=== PATIENT | female | born 1990 | race Caucasian/White ===

== ENCOUNTER 2017-10-10 01:33 | Emergency (ER) | payer OTHER ==
[~2017-10-10] VITALS: Ht 170.2 cm; Wt 70.0 kg
--- NOTE | 2017-10-10 02:43 | ED GI/GU/ABDOMINAL COMPLAINT ---
History of Present Illness General Chief Complaint: Abdominal Pain/Flank Pain Stated Complaint: "I FEEL TO MUCH PAIN IN MY STOMACH" Source: patient Exam Limitations: no limitations Vital Signs & Intake/Output Vital Signs & Intake/Output Vital Signs Date Time Temp Pulse Resp B/P B/P Pulse O2 O2 Flow FiO2 Mean Ox Delivery Rate 10/10 0335 97.9 80 16 104/51 99 Room Air Allergies Coded Allergies: No Known Allergies (10/10/17) Reconcile Medications Omeprazole Magnesium (Prilosec Otc) 20 MG TABLET.DR 1 TAB PO DAILY stomach pain Ondansetron (Zofran Odt) 4 MG TAB.RAPDIS 1 TAB SL TID PRN nausea, vomiting Triage Note: 27YO FEMALE TO TRIAGE W/CO ABD PAIN THAT AWOKE HER AND VOMITING X 1 Triage Nurses Notes Reviewed? yes ? n Is pt currently ? No Onset: Gradual Duration: hour(s):, better Timing: recent history Quality/Severity: burning Location: epigastric Radiation: no radiation Activities at Onset: none Modifying Factors: Worsens With: palpation. Associated Symptoms: abdominal pain HPI: 27 yo woman in prior good health awoke this am with gagging and mid epigastric burning type pain x 1-2 hours. She notes that presently she is feeling better. She has no fever, chills, chest pain, nausea, vomiting, diarrhea. She is otherwise well. Past History Travel History Traveled to [place] past 21 day No Medical History Any Pertinent Medical History? see below for history Neurological: NONE EENT: NONE Cardiovascular: NONE Respiratory: NONE Gastrointestinal: NONE Hepatic: NONE Renal: NONE Musculoskeletal: NONE Psychiatric: NONE Endocrine: NONE Blood Disorders: NONE Cancer(s): NONE DIRECTOR [employer]IENT SERVICES/Reproductive: NONE Surgical History Surgical History: none Psychosocial History What is your primary language [facility] Tobacco Use: Never used Family History Hx Contributory? No Review of Systems Review of Systems Constitutional: Reports: no symptoms. EENTM: Reports: no symptoms. Respiratory: Reports: no symptoms. Cardiovascular: Reports: no symptoms. GI: Reports: no symptoms. Genitourinary: Reports: no symptoms. Musculoskeletal: Reports: no symptoms. Skin: Reports: no symptoms. Neurological/Psychological: Reports: no symptoms. Hematologic/Endocrine: Reports: no symptoms. Immunologic/Allergic: Reports: no symptoms. All Other Systems: Reviewed and Negative Physical Exam Physical Exam General Appearance: well developed/nourished, no apparent distress Head: atraumatic, normal appearance Eyes: Bilateral: normal appearance. Ears, Nose, Throat, Mouth: hearing grossly normal, moist mucous membrane Neck: normal inspection, supple, full range of motion Respiratory: normal breath sounds, chest non-tender, no respiratory distress, quiet respiration, lungs clear Cardiovascular: regular rate/rhythm Gastrointestinal: normal bowel sounds, soft, mild mid epigastric tenderness to palpation. no rebound. no guarding. no murphys sign. no rlq tenderness. Back: normal inspection, normal range of motion Extremities: normal range of motion Neurologic/Psych: no motor/sensory deficits, awake, alert, oriented x 3 Skin: intact, normal color, warm/dry Core Measures ACS in differential dx? No Sepsis Present: No Sepsis Focused Exam Completed? No Progress Differential Diagnosis: gastritis, reflux vs other. Plan of Care: Orders Procedure Date/time Status URINALYSIS 10/10 156 Complete LIPASE 10/10 156 Complete HEPATIC FUNCTION PANEL 10/10 156 Complete HUMAN BETA HCG SCREEN 10/10 156 Complete CBC WITHOUT DIFFERENTIAL 10/10 156 Complete BASIC METABOLIC PANEL 10/10 156 Complete AMYLASE 10/10 156 Complete Laboratory Tests 10/10/17 0304: Anion Gap 10, Estimated GFR > 60, BUN/Creatinine Ratio 25.0, Glucose 102 H, Calcium 9.6, Total Bilirubin 0.2, Direct Bilirubin 0.1, AST 16, ALT 24, Alkaline Phosphatase 47, Total Protein 6.8, Albumin 4.0, Amylase 77, Lipase 80, Total Beta HCG NEGATIVE, CBC w Diff NO MAN DIFF REQ, RBC 4.39, MCV 87.7, MCH 29.6, MCHC 33.8, RDW 13.1, MPV 8.5, Gran % 73.2, Lymphocytes % 18.4 L, Monocytes % 7.8, Eosinophils % 0.3, Basophils % 0.3, Absolute Granulocytes 6.6 H, Absolute Lymphocytes 1.7, Absolute Monocytes 0.7 H, Absolute Eosinophils 0, Absolute Basophils 0, Urine Color YEL, Urine Clarity CLEAR, Urine pH 6.0, Ur Specific [place] 1.020, Urine Protein NEG, Urine Ketones NEG, Urine Nitrite NEG, Urine Bilirubin NEG, Urine Urobilinogen 0.2, Ur Leukocyte Esterase NEG, Ur Microscopic SEDIMENT EXAMINED, Urine RBC 3-5, Urine WBC 1-3 H, Ur Epithelial Cells MOD H, Urine Bacteria RARE H, Urine Mucus FEW, Urine Hemoglobin SMALL H, Urine Glucose NEG Initial ED EKG: none Departure Departure Disposition: HOME OR SELF CARE Condition: Stable Clinical Impression Primary Impression: Abdominal pain Secondary Impressions: Gastritis, GERD (gastroesophageal reflux disease) Referrals: Unknown (PCP/Family) Departure Forms: Customer Survey General Discharge Information Prescriptions: Current Visit Scripts Omeprazole Magnesium (Prilosec Otc) 1 TAB PO DAILY #30 TAB Ondansetron (Zofran Odt) 1 TAB SL TID PRN nausea, vomiting #10 TAB Comments 10/10/17, 4:30am... pt resting comfortably, feels better after supportive medications.... labs benign... pt safe for discharge and will follow up with pmd or return if symptoms worsen.
[2017-10-10 03:19] LABS: ABSOLUTE BASOPHIL COUNT 0 /CUMM (0.0-0.2); ABSOLUTE EOSINOPHIL COUNT 0 /CUMM (0.0-0.7); ABSOLUTE GRANULOCYTE CT 6.6 /CUMM (1.4-6.5); ABSOLUTE LYMPH COUNT 1.7 /CUMM (1.2-3.4); ABSOLUTE MONOCYTE COUNT 0.7 /CUMM (0.10-0.60); BASOPHIL % 0.3 % (0.0-2.0); EOSINOPHIL % 0.3 % (0-5); GRANULOCYTE % 73.2 % (42.2-75.2); HEMATOCRIT 38.5 % (37-47); MEAN CORPUSCULAR HGB 29.6 PG (27.0-31.0); MEAN CORPUSCULAR HGB CONC 33.8 G/DL (33.0-37.0); MEAN CORPUSCULAR VOLUME 87.7 FL (81.0-99.0); MEAN PLATELET VOLUME 8.5 FL (7.4-10.4); PLATELET COUNT 257 /CUMM (130-400); RBC DISTRIBUTION WIDTH 13.1 % (11.5-14.5); RED BLOOD CELL CT 4.39 /CUMM (4.20-5.40)
[2017-10-10] MEDS ORDERED: PRILOSEC OTC20 M1 PO (03:20)
[2017-10-10] MEDS ORDERED: ZOFRAN ODT4 M1 SL (03:20)
[2017-10-10 03:35] VITALS: BP 104/51
== END 2017-10-10 04:36 ==
LOC: ERH 01:33
PROVIDERS: Pediatrics
DX: K29.70 Gastritis, unspecified, without bleeding (principal); K21.9 Gastro-esophageal reflux disease without esophagitis
CPT/HCPCS: 81001; 96365; 96375; J0131; J2405

== ENCOUNTER 2017-11-29 11:05 | Emergency (ER) | payer OTHER ==
[~2017-11-29] VITALS: Ht 172 cm; Wt 70.0 kg
[~2017-11-29 11:05] MED LIST: PRILOSEC OTC20 M1 PO; ZOFRAN ODT4 M1 SL
--- NOTE | 2017-11-29 12:03 | ED GI/GU/ABDOMINAL COMPLAINT ---
History of Present Illness General Chief Complaint: Female Urogenital Problems Stated Complaint: FEMALE Source: patient Exam Limitations: no limitations Vital Signs & Intake/Output Vital Signs & Intake/Output Vital Signs Date Time Temp Pulse Resp B/P B/P Pulse O2 O2 Flow FiO2 Mean Ox Delivery Rate 11/29 1238 98.1 77 15 119/75 99 Room Air 11/29 1107 97.6 88 16 114/74 98 Room Air Allergies Coded Allergies: No Known Allergies (10/10/17) Reconcile Medications Ciprofloxacin HCl (Cipro) 500 MG TABLET 1 TAB PO BID uti Omeprazole Magnesium (Prilosec Otc) 20 MG TABLET.DR 1 TAB PO DAILY stomach pain Ondansetron (Zofran Odt) 4 MG TAB.RAPDIS 1 TAB SL TID PRN nausea, vomiting Phenazopyridine HCl (Pyridium) 100 MG TABLET 1 TAB PO TID PRN urine symptoms Triage Note: PT REPORT BURNING WITH URINATION SINCE THIS AM. Triage Nurses Notes Reviewed? yes LMP (ages 10-50): unknown ? n Is pt currently ? No Onset: Abrupt Duration: day(s): (1), constant, continues in ED, getting worse Timing: single episode today Quality/Severity: burning Severity Numbers: 7 Location: urethral Radiation: no radiation Activities at Onset: urinating Prior Abdominal Problems: similar symptoms (uti) Sexually Active: Yes No Modifying Factors: none Modifying Factors: Worsens With: urinating. Associated Symptoms: dysuria, urinary frequency HPI: 27-year-old female with no past medical history presents for evaluation of dysuria, frequency, urgency. Patient states that symptoms started this morning. She reports burning with urination and has been noticing blood in her urine. She denies any abdominal pain back pain or fever no vaginal discharge. She notes that she had a UTI many years ago that presented similarly. Past History Travel History Traveled to [place] past 21 day No Medical History Any Pertinent Medical History? see below for history Neurological: NONE EENT: NONE Cardiovascular: NONE Respiratory: NONE Gastrointestinal: NONE Hepatic: NONE Renal: NONE Musculoskeletal: NONE Psychiatric: NONE Endocrine: NONE Blood Disorders: NONE Cancer(s): NONE MOTHER BABY RN/Reproductive: NONE Surgical History Surgical History: none Psychosocial History What is your primary language Japanese Tobacco Use: Never used Family History Hx Contributory? No Review of Systems Review of Systems Constitutional: Reports: no symptoms. EENTM: Reports: no symptoms. Respiratory: Reports: no symptoms. Cardiovascular: Reports: no symptoms. GI: Reports: no symptoms. Genitourinary: Reports: see HPI, dysuria, frequency, hematuria, pain, urgency. Musculoskeletal: Reports: no symptoms. Skin: Reports: no symptoms. Neurological/Psychological: Reports: no symptoms. Hematologic/Endocrine: Reports: no symptoms. Immunologic/Allergic: Reports: no symptoms. All Other Systems: Reviewed and Negative Physical Exam Physical Exam General Appearance: well developed/nourished, no apparent distress, alert, awake Head: atraumatic, normal appearance Eyes: Bilateral: normal appearance, PERRL, EOMI. Ears, Nose, Throat, Mouth: hearing grossly normal, moist mucous membrane Neck: normal inspection, supple, full range of motion Respiratory: normal breath sounds, chest non-tender, no respiratory distress, lungs clear Cardiovascular: regular rate/rhythm, normal peripheral pulses Peripheral Pulses: 2+ radial (R), 2+ radial (L) Gastrointestinal: normal bowel sounds, soft, non-tender, no organomegaly Back: normal inspection, normal range of motion, no vertebral tenderness Extremities: normal range of motion Neurologic/Psych: no motor/sensory deficits, awake, alert, oriented x 3, normal gait Skin: intact, normal color, warm/dry Core Measures ACS in differential dx? No Sepsis Present: No Sepsis Focused Exam Completed? No Progress Differential Diagnosis: intrauterine , kidney stone, PID/cervicitis, threatened AB, UTI/pyelo Plan of Care: Orders Procedure Date/time Status CULTURE,URINE 11/29 110 Active URINE 11/29 110 Complete URINALYSIS 11/29 110 Complete Laboratory Tests 11/29/17 1119: Urine Color BLDY H, Urine Clarity HAZY H, Urine pH 6.5, Ur Specific [place] 1.025, Urine Protein 100 H, Urine Ketones NEG, Urine Nitrite POS H, Urine Bilirubin NEG@ICTO, Urine Urobilinogen 0.2, Ur Leukocyte Esterase MOD H, Ur Microscopic SEDIMENT EXAMINED, Urine RBC PACKD H, Urine WBC 25-50 H, Ur Epithelial Cells FEW, Urine Bacteria FEW H, Micro UA Comment MORE INFO: H, Urine Hemoglobin LARGE H, Urine Glucose NEG, Urine Test NEGATIVE Microbiology 11/29 111 URINE ROUT: Urine Culture - RECD Patient seen and evaluated. She is reporting multiple urinary symptoms. She is afebrile no abdominal pain or back pain. No vaginal bleeding or discharge. Urinalysis is showing signs of infection culture added. Patient was given a prescription for Cipro and Pyridium. Advised a restaurant plenty of fluids Tylenol and ibuprofen for pain and make a follow-up with the primary care doctor for recheck discussed return precautions patient agrees. Initial ED EKG: none Departure Departure Disposition: HOME OR SELF CARE Condition: Stable Clinical Impression Primary Impression: UTI (urinary tract infection) Qualifiers: Urinary tract infection type: acute cystitis Hematuria presence: with hematuria Qualified Code: N30.01 - Acute cystitis with hematuria Referrals: Renata Tovar APRN (PCP/Family) Additional Instructions: rest and drink lots of water, take antibiotcs as diretced for full course. pyridum as needed for urinary symptoms. moniotr symptoms return with any concerns. Departure Forms: Customer Survey General Discharge Information Prescriptions: Current Visit Scripts Ciprofloxacin HCl (Cipro) 1 TAB PO BID #14 TAB Phenazopyridine HCl (Pyridium) 1 TAB PO TID PRN urine symptoms #6 TAB
[2017-11-29] MEDS ORDERED: CIPRO500 M1 PO (12:27)
[2017-11-29] MEDS ORDERED: PYRIDIUM100 M1 PO (12:27)
[2017-11-29 12:38] VITALS: BP 119/75
== END 2017-11-29 12:39 ==
LOC: ERH 11:05
DX: N39.0 Urinary tract infection, site not specified (principal)
CPT/HCPCS: 81001; 81025; 87086